=== PATIENT | female | born 1990 | race Two or more races ===

== ENCOUNTER 2023-07-15 11:15 | Emergency (ER) | payer MEDICAID ==
[~2023-07-15] VITALS: Ht 157.5 cm; Wt 89.8 kg
[2023-07-15 11:27] VITALS: BP 156/84; PULSE 109; RESP 18; O2SAT 97
[2023-07-15 13:04] LABS: Urine Bacteria None Seen /hpf (None Seen)
[2023-07-15 13:41] LABS: Urine Blood Negative /uL (Negative); Urine Clarity Turbid (Clear); Urine Color Light-Yellow (Yellow); Urine Protein, UAD Negative (Negative); Urine Specific Gravity 1.009 (1.001-1.035); Urine Urobilinogen Normal (Negative); Urine WBC 4 /hpf (0 - 5)
== END 2023-07-15 13:18 | disposition left against medical advice (07) ==
LOC: ER 11:15
DX: T78.40XA Allergy, unspecified, initial encounter (principal); Z53.21 Procedure and treatment not carried out due to patient leaving prior to being seen by health care provider; X58.XXXA Exposure to other specified factors, initial encounter
CPT/HCPCS: 81001

== ENCOUNTER 2023-10-31 19:40 | Emergency (ER) | payer MEDICAID ==
[~2023-10-31] VITALS: Ht 157.5 cm; Wt 91.9 kg
[2023-10-31 20:38] LABS: Urine Bacteria None Seen /hpf (None Seen)
[2023-10-31 20:50] LABS: Urine Blood 2+ /uL (Negative); Urine Clarity Clear (Clear); Urine Color Light-Yellow (Yellow); Urine Mucus FEW (None Seen); Urine Protein, UAD Negative (Negative); Urine Specific Gravity 1.019 (1.001-1.035); Urine Urobilinogen Normal (Negative); Urine WBC 1 /hpf (0 - 5); Urine pH 7.5 (5.0-9.0)
[2023-10-31 21:19] LABS: Basophils # (auto) 0.1 10 ^3/uL (0-0.2); Eosinophils # (auto) 0.1 10 ^3/uL (0-0.8); Eosinophils % (auto) 0.8 % (0.0-7.0); Hematocrit 38.9 % (36.0-46.0); Hemoglobin 13.3 g/dL (12.2-16.2); Lymphocytes # (auto) 2.8 10 ^3/uL (0.4-5.4); Lymphocytes % (auto) 26.5 % (10.0-50.0); Mean Corpuscular Hemoglobin 31.5 pg (28.0-32.0); Mean Corpuscular Hgb Conc. 34.1 g/dL (32.0-36.0); Mean Corpuscular Volume 92.2 fL (80.0-100.0); Monocytes # (auto) 0.6 10 ^3/uL (0-1.3); Monocytes % (auto) 5.3 % (0.0-12.0); Neutrophils # (auto) 7.1 10 ^3/uL (1.6-8.6); Neutrophils % (auto) 66.4 % (37.0-80.0); Red Blood Cells 4.21 10^6/uL (4.0-5.20); Red Cell Distribution Width 13.5 % (11.8-14.3); White Blood Cell 10.6 10^3/uL (4.4-10.8)
[2023-10-31 21:51] LABS: Alanine Aminotransferase 80 U/L (7-40); Albumin 4.6 g/dL (3.2-4.8); Alkaline Phosphatase 92 U/L (46-116); Anion Gap 8 (5-15); Aspartate Aminotransferase 46 U/L (13-40); BUN/Creatinine Ratio 12.3 (10.0-20.0); Bilirubin, Total 0.3 mg/dL (0.2-1.0); Blood Urea Nitrogen 8 mg/dL (9-23); Calcium 9.4 mg/dL (8.7-10.4); Carbon Dioxide 27 mmol/L (20-30); Chloride 105 mmol/L (98-107); Glucose 106 mg/dL (74-106); Potassium 4.1 mmol/L (3.5-5.1); Sodium 140 mmol/L (136-145); Total Protein 7.4 g/dL (5.7-8.2)
[2023-11-01] MEDS ORDERED: MEDR5TAB28 PO (00:49)
[2023-11-01 01:02] VITALS: BP 132/80; PULSE 91; RESP 18; TEMP 98.1; O2SAT 94
== END 2023-11-01 01:03 | disposition home or self-care (01) ==
LOC: ER 19:40
DX: N94.6 Dysmenorrhea, unspecified (principal); Z91.010 Allergy to peanuts
CPT/HCPCS: 36415; 76856; 80053; 81001; 81025; 85025